=== PATIENT | female | born 1970 | race Caucasian/White ===

== ENCOUNTER 2021-02-23 14:50 | Outpatient (CLI) | payer OTHER, SELFPAY ==
--- NOTE | ~2021-02-23 | MR_ITS ---
EXAMINATION: MR abdomen wo/w con DATE: 02/23/2021 15:58 INDICATION: Liver lesion. TECHNIQUE: Magnetic resonance imaging (MRI) of the abdomen was performed without and with 13 mL Multi Boom intravenous contrast. Sequences included coronal T2-weighted FS FSE, coronal and axial FS FIEST A, axial T2-weighted FSE, coronal LAVA-flex, axial STIR FSE, axial DWI, axial dual-echo T1-weighted F SPGR, and axial LAVA. Postcontrast sequences included coronal LAVA-flex and a time course of axial LA VA. COMPARISON: None. FINDINGS: There is a 1.5 x 1.0 cm mass in segment DAGOBERTO of the liver with interrupted peripheral puddling of cont rast, consistent with a hemangioma. The gallbladder, spleen, pancreas, adrenal glands, and kidneys ar e normal. There are no dilated loops of bowel. There are no pathologically enlarged lymph nodes. Ther e is no free intraperitoneal fluid. There are bilateral breast implants. IMPRESSION: 1. 1.5 cm hemangioma in the liver. Reviewed, dictated and finalized at location A.
[2021-02-23 15:40] LABS: Estimated Glomerular Filt Rate 53
== END 2021-02-23 14:51 ==
LOC: MICIMG 14:51
PROVIDERS: Visit Provider Physician Assistant Medical
DX: K76.9 Liver disease, unspecified (principal)
CPT/HCPCS: 74183; A9577

== ENCOUNTER 2023-10-25 13:04 | Outpatient (CLI) | payer OTHER, SELFPAY ==
--- NOTE | ~2023-10-25 | CT_ITS ---
EXAMINATION: CT diagnostic chest wo con DATE: 10/25/2023 13:26 INDICATION: Solitary pulmonary nodule TECHNIQUE: Computed tomography (CT) of the chest was performed without intravenous contrast. The dose -length product (DLP) was 48.65 mGy-cm. Automated exposure control and iterative reconstruction techn ique were employed. COMPARISON: None FINDINGS: There is a 3 mm subpleural nodule of the left lower lobe. The lungs are free of acute opaci ties. No pleural effusion or pneumothorax. Bilateral breast implants are noted. No pathologically enl arged thoracic lymph nodes are identified. The heart size is normal. There is mild thoracic spondylos is. IMPRESSION: 1. 3 mm subpleural nodule of the left lower lobe, likely old granulomatous disease. If the patient hampton s no risk factors for malignancy, no further follow up is required. If there are risk factors for ma lignancy (i.e., history of smoking, asbestos or radiation exposure), consider followup CT in 12 month s. Reviewed, dictated and finalized at location L. [employer] IMPRESSION: 1. 3 mm subpleural nodule of the left lower lobe, likely old granulomatous dise ase. If the patient has no risk factors for malignancy, no further follow up is required. If there are risk factors for malignancy (i.e., history of smoking, asbestos or radiation exposure), consider followup CT in 12 months.
== END 2023-10-25 13:05 ==
PROVIDERS: PCP Family Medicine; Visit Provider Family Medicine
DX: R91.1 Solitary pulmonary nodule (principal)
CPT/HCPCS: 71250